=== PATIENT | male | born 1990 | race Caucasian/White ===

== ENCOUNTER → 2023-06-23 | Outpatient (CLI) | payer OTHER ==
[~2023-06-23] VITALS: Ht 175.3 cm; Wt 95.3 kg
[2023-06-23 14:43] VITALS: PULSE 95; RESP 16; O2SAT 98
[2023-06-23] MEDS: albuterol 2.5 MG/3 ML nebule NEB PRN (14:46)
== END | disposition home or self-care (01) ==
LOC: RT 14:07
PROVIDERS: ATTEND Chiropractor
DX: J45.909 Unspecified asthma, uncomplicated (principal)
CPT/HCPCS: 94060; 94760